=== PATIENT | female | born 2000 | race Caucasian/White ===

== ENCOUNTER → 2019-02-10 | Outpatient (CLI) | payer OTHER ==
--- NOTE | 2019-02-10 16:34 | US ---
EXAMINATION TYPE: Ultrasound OB <= 14 week fetus DATE OF EXAM: 02/10/2019 3:16 PM COMPARISON: NONE CLINICAL HISTORY: 18 year-old female Z36 CONFIRM DATES. EXAM PERFORMED: Transabdominal (TA) FINDINGS: EXAM MEASUREMENTS: GESTATIONAL AGE / DATING Physician Established: Not yet established Dates by LMP: (9 weeks/5 days) EDC: 09/10/19 Dates by First Scan: No previous this is first scan Dates by Current Scan for: (9 weeks/6 days) EDC: 09/09/19 MATERNAL ANATOMY Uterus: 14.4 x 4.2 x 7.7cm Right Ovary: 3.6 x 1.9 x 1.8cm Left Ovary: 2.6 x 2.0 x 1.6cm Post CDS / Adnexa: wnl Presence of free fluid: no Presence of corpus luteal cyst: yes, right ovary = 2.0 x 1.7 x 2.0cm GESTATION / SURVEY CRL: 3.0cm (9 weeks/6 days) Yolk Sac (normal less than 6mm): 0.5cm Heart Rate: 170 bpm Rhythm: Normal IUP: Viable IUP Date of LMP: 12/04/18 Beta HcG (if available): Not available at this time Equipment Service Associate notes: Single viable IUP 9wks/6days with RAQUEL of 09/09/19. Probable corpus luteum right ov isabel IMPRESSION: 1. Single live intrauterine with estimated gestational age of 9 weeks 5 days by LMP. Curren t ultrasound biometry is concordant (9 weeks 6 days). 2. Complete survey recommended at 18-20 weeks.
== END | disposition home or self-care (01) ==
LOC: RADUSWWP 14:49
PROVIDERS: ATTEND Obstetrics & Gynecology
DX: Z36.89 Encounter for other specified antenatal screening (principal); Z3A.09 9 weeks gestation of pregnancy
CPT/HCPCS: 76801

== ENCOUNTER → 2019-02-17 | Outpatient (CLI) | payer OTHER ==
[2019-02-17 15:04] LABS: HGB 12.2 gm/dL (11.4-16.0); MCHC 32.9 g/dL (31.0-37.0); MCV 88.2 fL (80.0-100.0); Mean Platelet Volume 6.4; Platelet Count 351 k/uL (150-450); RDW 13.6 % (11.5-15.5)
[2019-02-17 19:38] LABS: African American GFR (CKD) 152.1 (60.0-200.0)
[2019-02-17 20:46] LABS: HIV 1 AB Non-Reactive (Non-Reactive); HIV AB P24 Non-Reactive (Non-Reactive); HIV P24 AG Non-Reactive (Non-Reactive)
[2019-02-18 05:38] LABS: Toxoplasma Antibody (IgG) <3.0 IU/mL (<7.2); Toxoplasma Antibody (IgM) <3.0 AU/mL (<8.0)
== END | disposition home or self-care (01) ==
LOC: LABWHC1 13:41
PROVIDERS: ATTEND Obstetrics & Gynecology
DX: R53.83 Other fatigue (principal); Z3A.00 Weeks of gestation of pregnancy not specified
CPT/HCPCS: 36415; 82565; 82947; 85027; 86762; 86777; 86778; 86780; 86850; 86900; 86901; 87340; 87390

== ENCOUNTER 2019-03-29 14:09 | Emergency (ER) | payer OTHER ==
[2019-03-29 14:34] VITALS: BP 146/75; PULSE 70; RESP 16; TEMP 98.3
[2019-03-29] MEDS ORDERED: SODIUM CHLORIDE 0.9% 1,000 ML IV STA ×2 (14:58)
[2019-03-29 16:01] LABS: Basophils % (A) 0 %; Eosinophils # (A) 0.1 k/uL (0-0.7); Eosinophils % (A) 1 %; HCT 36.2 % (34.0-46.0); HGB 12.1 gm/dL (11.4-16.0); Lymphocytes # (A) 2.3 k/uL (1.0-4.8); Lymphocytes % (A) 20 %; MCH 29.5 pg (25.0-35.0); MCHC 33.3 g/dL (31.0-37.0); MCV 88.5 fL (80.0-100.0); Mean Platelet Volume 6.6; Monocytes # (A) 0.4 k/uL (0-1.0); Monocytes % (A) 4 %; Neutrophils # (A) 8.6 k/uL (1.3-7.7); Neutrophils % (A) 74 %; Platelet Count 368 k/uL (150-450); RBC 4.09 m/uL (3.80-5.40); RDW 14.7 % (11.5-15.5); WBC 11.5 k/uL (4.0-11.0)
[2019-03-29 16:08] LABS: Amorphous Sediment,Urine Rare /hpf; Appearance,Urine Cloudy (Clear); Bacteria,Urine Rare /hpf; Bilirubin,Urine Negative (Negative); Blood,Urine Negative (Negative); Color,Urine Yellow; Glucose,Urine (UA) Negative (Negative); Hyaline Casts,Urine 7 /lpf (0-2); Ketones,Urine 1+ (Negative); Leukocyte Esterase,Urine Negative (Negative); Mucus,Urine Few /hpf; Nitrite,Urine Negative (Negative); Protein,Urine Trace (Negative); Specific Gravity,Urine 1.022 (1.001-1.035); Squamous Epithelial Cell,Urine 39 /hpf (0-4); Urobilinogen,Urine <2.0 mg/dL (<2.0); WBC,Urine 3 /hpf (0-5)
[2019-03-29 16:10] LABS: ALT 24 U/L (9-52); AST 20 U/L (14-36); African American GFR (CKD) >90 (>60 ml/min/1.73 sqM); Albumin 3.9 g/dL (3.5-5.0); Alkaline Phosphatase 58 U/L (38-126); Amylase 63 U/L (30-110); Anion Gap 10 mmol/L; Blood Urea Nitrogen 7 mg/dL (7-17); Calcium 8.8 mg/dL (8.4-10.2); Carbon Dioxide 22 mmol/L (22-30); Chloride 105 mmol/L (98-107); Glucose 72 mg/dL (74-99); Sodium 137 mmol/L (137-145); Total Bilirubin 0.2 mg/dL (0.2-1.3); Total Protein 6.8 g/dL (6.3-8.2)
--- NOTE | 2019-03-29 16:31 | ED ---
Abdominal Pain HPI - General Chief Complaint: Abdominal Pain Stated Complaint: abdominal pain/16 wks preg Time Seen by Provider: 03/29/19 14:35 Source: patient, RN notes reviewed, old records reviewed Mode of arrival: ambulatory Limitations: no limitations - History of Present Illness Initial Comments: Patient is a 18-year-old female presents today with right lower quadrant pain intermittently today. She is currently 16 weeks . She has had u ltrasounds confirm intrauterine . Her INSTRUMENT REPAIR TECHNICIAN is Dr. Andrew. Patient states that she's had no vaginal bleeding or discharge. She denies any changes in urination. Patient reports that she had sharp pain that doubled her over at that time. Denies any fevers. She states that she's had no diarrhea or changes in stools. - Related Data Previous Rx's Medication Instructions Recorded Cephalexin [Keflex] 500 mg PO Q6HR 3 Days #12 cap 03/29/19 Metoclopramide [Reglan] 10 mg PO ACHS #15 tab 03/29/19 Allergies Allergy/AdvReac Type Severity Reaction Status Date / Time No Known Allergies Allergy Verified 03/29/19 14:34 Review of Systems ROS Statement: Those systems with pertinent positive or pertinent negative responses have been documented in the HPI. ROS Other: All systems not noted in ROS Statement are negative. Past Medical History Past Medical History: No Reported History History of Any Multi-Drug Resistant Organisms: None Reported Additional Past Surgical History / Comment(s): EYE SURGERY Past Psychological History: No Psychological Hx Reported Smoking Status: Current every day smoker Past Alcohol Use History: None Reported Past Drug Use History: None Reported General Exam - General Exam Comments Initial Comments: Well-appearing 18-year-old female. Alert and oriented 3. Smiling and joking with her boyfriend and room. General: Well appearing, well nourished, in no distress. Oriented x 3, normal mood and affect . Ambulating without difficulty. Skin: Good turgor, no rash, unusual bruising or prominent lesions Hair: Normal texture and distribution. HEENT: Head: Normocephalic, atraumatic, no visible or palpable masses, depressions, or scaring. Eyes: Visual acuity intact, conjunctiva clear, sclera non-icteric, EOM intact, PERRL. Ears: EACs clear, TMs translucent & cone of light visualized. hearing intact. Nose: No external lesions, mucosa non-inflamed, septum and turbinates normal Mouth: Mucous membranes moist, no mucosal lesions. Teeth/Gums: No obvious caries or periodontal disease. No gingival inflammation or significant resorption. Pharynx: Mucosa non-inflamed, no tonsillar hypertrophy or exudate Neck: Supple, without lesions, bruits, or adenopathy, thyroid non-enlarged and non-tender Heart: No cardiomegaly or thrills; regular rate and rhythm, no murmur or gallop Lungs: Clear to auscultation and percussion Abdomen: Bowel sounds normal, no tenderness, organomegaly, masses, or hernia Back: Spine normal without deformity or tenderness, no CVA tenderness Extremities: No amputations or deformities, cyanosis, edema or varicosities, peripheral pulses intact Musculoskeletal: Normal gait and station. No misalignment, asymmetry, crepitation, defects, tenderness, masses, effusions, decreased range of motion, instability, atrophy or abnormal strength or tone in the head, neck, spine, ribs, pelvis or extremities. Neurologic: CN 2-12 normal. Sensation to pain, touch, and proprioception normal. DTRs normal in upper and lower extremities. No pathologic reflexes. Psychiatric: Oriented X3, intact recent and remote memory, judgment and insight, normal mood and affect. Limitations: no limitations Course Vital Signs 03/29/19 03/29/19 14:32 17:27 Temperature 98.3 F 98.3 F Pulse Rate 70 70 Respiratory 16 16 Rate Blood Pressure 146/75 146/75 O2 Sat by Pulse 100 100 Oximetry Medical Decision Making - Medical Decision Making 18-year-old female presented today for evaluation of her lower quadrant abdominal pain. Aside Patient has no significant tenderness on exam Patient did have an episode of vomiting. She had heart tones were auscultated. heart tones are 138- 150 bpm. patient's blood work was reviewed and unremarkable. I did discuss that Patient should follow-up with her INSTRUMENT REPAIR TECHNICIAN. Pain could be related to previous stretching. She has no other signs of tenderness or guarding on exam or fever. Discussed the signs were to occur she should return for reevaluation. All questions were answered return parameters were discussed. - Lab Data Result diagrams: 03/29/19 15:48 03/29/19 15:48 Lab Results 03/29/19 03/29/19 03/29/19 Range/Units 15:48 15:48 15:48 WBC 11.5 H (4.0-11.0) k/uL RBC 4.09 (3.80-5.40) m/uL Hgb 12.1 (11.4-16.0) gm/dL Hct 36.2 (34.0-46.0) % MCV 88.5 (80.0-100.0) fL MCH 29.5 (25.0-35.0) pg MCHC 33.3 (31.0-37.0) g/dL RDW 14.7 (11.5-15.5) % Plt Count 368 (150-450) k/uL Neutrophils % 74 % Lymphocytes % 20 % Monocytes % 4 % Eosinophils % 1 % Basophils % 0 % Neutrophils # 8.6 H (1.3-7.7) k/uL Lymphocytes # 2.3 (1.0-4.8) k/uL Monocytes # 0.4 (0-1.0) k/uL Eosinophils # 0.1 (0-0.7) k/uL Basophils # 0.0 (0-0.2) k/uL Sodium 137 (137-145) mmol/L Potassium 4.0 (3.5-5.1) mmol/L Chloride 105 (98-107) mmol/L Carbon Dioxide 22 (22-30) mmol/L Anion Gap 10 mmol/L BUN 7 (7-17) mg/dL Creatinine 0.54 (0.52-1.04) mg/dL Est GFR (CKD-EPI)AfAm >90 (>60 ml/min/1.73 sqM) Est GFR (CKD-EPI)NonAf >90 (>60 ml/min/1.73 sqM) Glucose 72 L (74-99) mg/dL Calcium 8.8 (8.4-10.2) mg/dL Total Bilirubin 0.2 (0.2-1.3) mg/dL AST 20 (14-36) U/L ALT 24 (9-52) U/L Alkaline Phosphatase 58 (38-126) U/L Total Protein 6.8 (6.3-8.2) g/dL Albumin 3.9 (3.5-5.0) g/dL Amylase 63 (30-110) U/L Lipase 57 (23-300) U/L Urine Color Yellow Urine Appearance Cloudy H (Clear) Urine pH 6.0 (5.0-8.0) Ur Specific [place] 1.022 (1.001-1.035) Urine Protein Trace H (Negative) Urine Glucose (UA) Negative (Negative) Urine Ketones 1+ H (Negative) Urine Blood Negative (Negative) Urine Nitrite Negative (Negative) Urine Bilirubin Negative (Negative) Urine Urobilinogen <2.0 (<2.0) mg/dL Ur Leukocyte Esterase Negative (Negative) Urine WBC 3 (0-5) /hpf Ur Squamous Epith Cells 39 H (0-4) /hpf Amorphous Sediment Rare H (None) /hpf Urine Bacteria Rare H (None) /hpf Hyaline Casts 7 H (0-2) /lpf Urine Mucus Few H (None) /hpf - Radiology Data Radiology results: report reviewed Disposition Clinical Impression: Bacteriuria during Disposition: HOME SELF-CARE Condition: Good Instructions (If sedation given, give patient instructions): Abdominal Pain in (ED) Additional Instructions: Patient advised to follow-up with primary care physician and INSTRUMENT REPAIR TECHNICIAN. Take antibiotics and nausea medicine as prescribed. Prescriptions: Cephalexin [Keflex] 500 mg PO Q6HR 3 Days #12 cap Metoclopramide [Reglan] 10 mg PO ACHS #15 tab Is patient prescribed a controlled substance at d/c from ED?: No Referrals: None,Stated [Primary Care Provider] - 1-2 days Time of Disposition: 17:02
== END 2019-03-29 17:26 | disposition home or self-care (01) ==
LOC: EC 14:09
DX: O23.91 Unspecified genitourinary tract infection in pregnancy, first trimester (principal); O99.331 Smoking (tobacco) complicating pregnancy, first trimester; F17.200 Nicotine dependence, unspecified, uncomplicated; Z3A.16 16 weeks gestation of pregnancy
CPT/HCPCS: 36415; 80053; 81001; 82150; 83690; 85025; 87086; 99284

== ENCOUNTER 2019-09-08 08:45 | Inpatient (IN) | payer OTHER ==
[2019-09-08] MEDS ORDERED: TERBUTALINE 1 MG/ML VIAL SQ PRN (09:21)
[2019-09-08] MEDS ORDERED: CARBOPROST TROMETHAMINE 250 MCG/ML 1 ML AMP IM PRN (09:21)
[2019-09-08] MEDS ORDERED: LIDOCAINE 0.5% (PF) 5 MG/ML (50 ML SDV) SQ PRN (09:21)
[2019-09-08] MEDS ORDERED: OXYTOCIN 10 UNIT/ML 1 ML VIAL IM PRN (09:21)
[2019-09-08] MEDS ORDERED: METHYLERGONOVINE 0.2 MG/ML 1 ML AMP IM PRN (09:21)
[2019-09-08] MEDS ORDERED: OXYTOCIN 30 UNITS/500 ML NS 30 UNIT in SALINE 1 500ML.BAG IV SCH (09:30)
[2019-09-08] MEDS: LACTATED RINGERS 1,000 ML IV SCH ×3 (09:50→18:17)
[2019-09-08 10:11] LABS: Basophils # (A) 0.1 k/uL (0-0.2); Basophils % (A) 1 %; Eosinophils # (A) 0.2 k/uL (0-0.7); Eosinophils % (A) 1 %; HCT 38.2 % (34.0-46.0); HGB 12.4 gm/dL (11.4-16.0); Lymphocytes # (A) 1.7 k/uL (1.0-4.8); Lymphocytes % (A) 15 %; MCH 29.5 pg (25.0-35.0); MCHC 32.3 g/dL (31.0-37.0); MCV 91.4 fL (80.0-100.0); Mean Platelet Volume 7.2; Monocytes # (A) 0.4 k/uL (0-1.0); Monocytes % (A) 4 %; Neutrophils # (A) 8.8 k/uL (1.3-7.7); Neutrophils % (A) 78 %; Platelet Count 277 k/uL (150-450); RBC 4.19 m/uL (3.80-5.40); RDW 12.7 % (11.5-15.5); WBC 11.3 k/uL (3.8-10.6)
--- NOTE | 2019-09-08 10:12 | P.HPOB ---
History of Present Illness H&P Date: 09/08/19 Chief Complaint: Leaking of fluid. This patient is a pleasant 19-year-old 1 para 0 female estimated date of confinement 09/10/2019 estimated gestational age 39-5/7 weeks who presents to labor and delivery complaining of gush of fluid at about 7:00 this morning. Patient's amnio sure is positive and she has gross rupture membranes. care has been uncomplicated. Review of Systems Genitourinary: Reports Menstruation: Reports amenorrhea Past Medical History Past Medical History: No Reported History History of Any Multi-Drug Resistant Organisms: None Reported Additional Past Surgical History / Comment(s): EYE SURGERY Past Anesthesia/Blood Transfusion Reactions: No Reported Reaction Past Psychological History: No Psychological Hx Reported Smoking Status: Current some day smoker Past Alcohol Use History: None Reported Past Drug Use History: None Reported Medications and Allergies Home Medications Medication Instructions Recorded Confirmed Type Pnv No.95/Ferrous Fum/Folic AC 1 tab PO DAILY 09/08/19 09/08/19 History [ Multivitamin Tablet] Allergies Allergy/AdvReac Type Severity Reaction Status Date / Time No Known Allergies Allergy Verified 09/08/19 09:12 Exam Vital Signs Temp Pulse Resp BP 09/08/19 09:14 98.4 F 94 18 140/67 Intake and Output 09/07/19 09/08/19 09/08/19 22:59 06:59 14:59 Other: Weight 110.677 kg - OBG Physical Exam Abdomen: bowel sounds normal, no diffuse tenderness, no bruit present, no guarding noted, no hepatomegaly, no splenomegaly, no mass Vulva: both: normal Vagina: normal moisture, no discharge Cervix: no lesion (Cervix is 2 cm 80% effaced -2 station with gross rupture membranes.), no discharge Uterus: enlarged (Fundal height 39 cm) Results blood work shows she is A-, rubella immune, RPR nonreactive, hepatitis B negative, HIV is negative, Glucola was normal, group B strep was negative, ultrasounds have shown normal growth and anatomy. Patient received RhoGAM on June 11. Assessment and Plan Assessment: This is a pleasant 19-year-old 1 para 0 female 39-5/7 weeks' gestation with spontaneous rupture membranes this morning. Patient's having very irregular sporadic contractions and therefore plan is to proceed with Pitocin augmentation/induction. heart tones are category 1. Anticipate vaginal delivery. Dr. Felix will be managing this patient throughout the day and delivery since I am post call. (1) 39 weeks gestation of Current Visit: Yes Status: Acute Code(s): Z3A.39 - 39 WEEKS GESTATION OF SNOMED Code(s): 33473318 (2) Spontaneous rupture of amniotic membranes Current Visit: Yes Status: Acute Code(s): LBT7870 - SNOMED Code(s): 605969979 (3) Rh negative status during Current Visit: Yes Status: Acute Code(s): O26.899 - OTH RELATED CONDITIONS, UNSPECIFIED TRIMESTER; Z67.91 - UNSPECIFIED BLOOD TYPE, RH NEGATIVE SNOMED Code(s): 453083083
--- NOTE | 2019-09-08 10:16 | P.MSEPDOC ---
Presenting Problems - Arrival Data Date of Arrival on Unit: 09/08/19 Time of Arrival on Unit: 08:45 Mode of Transport: Ambulatory - Complaint OB-Reason for Admission/Chief Complaint: Rule Out SROM Comment: Pt presents to triage for gush of fluid at 0730 this am, Medical History - Information : 1 Para: 0 Term: 0 : 0 Abortions: Spontaneous or Elective: 0 Number of Living Children: 0 - Gestational Age Gestational Age by RAQUEL (wks/days): 39 Weeks and 5 Days - History Complications: Smoker Review of Systems - Review of Systems Constitutional: No problems Breast: No problems ENT: No problems Cardiovascular: No problems Respiratory: No problems Gastrointestinal: No problems Genitourinary: No problems Musculoskeletal: No problems Neurological: No problems Skin: No problems Vital Signs - Temperature Temperature: 98.4 F Temperature Source: Temporal Artery Scan - Pulse Right Brachial Pulse Rate: 94 Pulse Assessment Method: Automatic Cuff - Respirations Respiratory Rate: 18 Oxygen Delivery Method: Room Air O2 Sat by Pulse Oximetry: 97 - Blood Pressure Right Arm Blood Pressure: 140/67 Blood Pressure Mean: 91 Blood Pressure Source: Automatic Cuff Medical Screen Scoring (Pre) - Cervical Exam Dilation: 1-3 cm = 1 Effacement: More than 50% = 2 Membranes: Ruptured = 3 - Uterine Contractions Frequency: > 5 minutes apart = 1 Duration: N/A Intensity: N/A - Maternal Vital Signs Maternal Blood Pressure: Systolic >139 = 2 Signs of Preeclampsia: N/A Maternal Respirations: N/A - Maternal Trauma Maternal Trauma: N/A - Assessment - Baby A Baseline FHR: 140 Heart Rate - NICHD Category: Category I (Normal) = 0 NST: Reactive Position: N/A Station: N/A - Total Score - Baby A Total Score - Baby A: 9 - Total Score - Baby B Total Score - Baby B: 9 - Total Score - Baby C Total Score - Baby C: 9 - Level of Risk - Baby A Level of Risk - Baby A: Medium (6-9) - Level of Risk - Baby B Level of Risk - Baby B: Medium (6-9) - Level of Risk - Baby C Level of Risk - Baby C: Medium (6-9) Physician Notification (Pre) - Physician Notified Physician Notified Date: 09/08/19 Physician Notified Time: 09:20 New Order Received: Yes - Notification Comment Comment: admited for SROM Disposition - Disposition OB Disposition: Admit, LDRP Suite I agree with the RN Medical Screening Exam: Yes Risk & Benefit of care provided described in d/c instruction: Yes Diagnosis: ENCOUNTER FOR FULL-TERM UNCOMPLICATED DELIVERY
[2019-09-08] MEDS ORDERED: BUTORPHANOL 1 MG/ML 1 ML VIAL IV PRN (13:17)
[2019-09-08] MEDS ORDERED: SODIUM CHLORIDE 0.9% 100 ML BAG ONE (15:45)
[2019-09-08] MEDS ORDERED: fentaNYL (PF) 50 MCG/ML 5 ML AMP ONE (15:45)
[2019-09-08] MEDS ORDERED: ROPIVACAINE 5MG/ML 20ML VIAL ONE (15:45)
[2019-09-08] MEDS ORDERED: ROPIVACAINE 100 MG, fentaNYL (PF) 200 MCG in SODIUM CHLORIDE 0.9% 76 ML EPIDURAL ONE (16:29)
--- NOTE | 2019-09-08 19:15 | P.PROBDLV ---
Vaginal Delivery Note - . Vaginal Delivery Note: The patient progressed to complete dilation after oxytocin augmentation of labor. She did receive epidural anesthesia. Once reaching complete dilation, she began pushing. Infant's head came to a crown. With one further push, the infant's head delivered across the perineum followed by the anterior shoulder. Nose and mouth were bulb suctioned. With one further push, the remainder the infant easily delivered and was placed on mother's abdomen. Cord was clamped a nd cut and infant was taken to warmer for evaluation. A viable female infant was noted with scores of 8 at 1 minute and 9 at 5 minutes and weight of 8 lbs. 9 oz. Placenta delivered shortly thereafter, intact, with a three-vessel cord. Uterus contracted fairly well after oxytocin was given and uterine massage was carried out. Her bladder was drained and this did help with the uterus fide. I also did place a gloved hand within the uterus and removed blood clots. No further placental tissue was noted. Inspection of the perineum revealed a first degree perineal laceration more to the left side of the vagina. This area was anesthetized with 1% lidocaine and then sutured with 3-0 Vicryl suture in a running locked fashion. Estimated blood loss is approximately 300 mL's. Both mother and infant are in stable condition. She also did have a small right periurethral abrasion that was noted to be hemostatic.
[2019-09-08] MEDS ORDERED: SIMETHICONE 80 MG CHEWABLE PO PRN (19:21)
[2019-09-08] MEDS ORDERED: LANOLIN CREAM 5 GM TUBE TOPICAL PRN (19:21)
[2019-09-08] MEDS ORDERED: diphenhydrAMINE 50 MG/ML 1 ML VIAL IVP PRN (19:21)
[2019-09-08] MEDS ORDERED: OXYTOCIN 20 UNITS/1000 ML NS 1,000 ML IV SCH (19:21)
[2019-09-08] MEDS ORDERED: Rhogam IMMUNE GLOBULIN 1,500 UNIT/1 ML IM ONE (19:21)
[2019-09-08] MEDS ORDERED: HYDROCORTISONE 2.5% RECTAL CREAM 30 GM TUBE RECTAL PRN (19:21)
[2019-09-08] MEDS ORDERED: ZOLPIDEM 5 MG TAB PO PRN (19:21)
[2019-09-08] MEDS ORDERED: ACETAMINOPHEN TAB 325 MG TAB PO PRN (19:21)
[2019-09-08] MEDS ORDERED: BENZOCAINE/MENTHOL SPRAY 1 GM/SPRAY AEROSOL TOPICAL PRN (19:21)
[2019-09-08] MEDS ORDERED: WITCH HAZEL 1 EACH MED..PAD TOPICAL PRN (19:21)
[2019-09-08] MEDS ORDERED: diphenhydrAMINE 25 MG CAP PO PRN (19:21)
[2019-09-08] MEDS ORDERED: BISACODYL 10 MG SUPP RECTAL PRN (19:21)
[2019-09-08] MEDS: IBUPROFEN 600 MG TAB PO PRN (21:19)
[2019-09-09] MEDS: SENNOSIDES-DOCUSATE SODIUM 1 EACH TAB PO SCH ×2 (01:23→08:06)
[2019-09-09 06:38] LABS: Basophils % (A) 0 %; Eosinophils # (A) 0.1 k/uL (0-0.7); Eosinophils % (A) 1 %; HCT 29.2 % (34.0-46.0); Lymphocytes # (A) 1.7 k/uL (1.0-4.8); Lymphocytes % (A) 13 %; MCHC 32.9 g/dL (31.0-37.0); MCV 91.2 fL (80.0-100.0); Mean Platelet Volume 7.4; Monocytes # (A) 0.7 k/uL (0-1.0); Monocytes % (A) 5 %; Neutrophils # (A) 10.6 k/uL (1.3-7.7); Neutrophils % (A) 79 %; Platelet Count 245 k/uL (150-450); WBC 13.4 k/uL (3.8-10.6)
--- NOTE | 2019-09-09 06:39 | P.PNOBGVD ---
Subjective - Subjective Patient reports: Reports appetite normal, Reports voiding normally, Reports pain well controlled, Reports ambulating normally : doing well Objective - Latest Vital Signs Latest vital signs: Vital Signs Temp Pulse Resp BP Pulse Ox 09/09/19 04:00 98.3 F 103 H 16 119/75 09/09/19 00:00 98.6 F 96 16 137/67 09/08/19 21:10 98.5 F 115 H 16 142/98 09/08/19 20:40 98.5 F 96 16 140/79 09/08/19 20:10 98.2 F 105 H 16 142/77 09/08/19 19:55 98.1 F 104 H 16 133/73 09/08/19 19:40 98.5 F 110 H 16 122/74 09/08/19 19:25 98.4 F 95 16 141/65 09/08/19 10:16 98.4 F 94 18 140/67 97 09/08/19 10:09 98.4 F 94 18 140/67 97 09/08/19 09:14 98.4 F 94 18 140/67 Intake and Output 09/08/19 09/08/19 09/09/19 14:59 22:59 06:59 Intake Total 300 Balance 300 Intake: Oral 300 Other: # Voids 1 1 Weight 110.677 kg - Exam Lungs: bilateral: normal Chest: Normal S1, Normal S2 Extremities: Present: normal Abdomen: Present: normal appearance, soft Uterus: Present: normal, firm - Labs Labs: Abnormal Lab Results - Last 24 Hours (Table) 09/08/19 Range/Units 09:45 WBC 11.3 H (3.8-10.6) k/uL Neutrophils # 8.8 H (1.3-7.7) k/uL Assessment and Plan Assessment: day #1. Patient is resting without complaints and wishes to go home. Vital signs are stable she is afebrile. Uterus is firm nontender she's having normal lochia. My impression this is a normal course. Plan is to continue routine care discharge home later today. (1) 39 weeks gestation of Current Visit: Yes Status: Acute Code(s): Z3A.39 - 39 WEEKS GESTATION OF SNOMED Code(s): 43941927 (2) Spontaneous rupture of amniotic membranes Current Visit: Yes Status: Acute Code(s): [id number] - SNOMED Code(s): 821599130 (3) Rh negative status during Current Visit: Yes Status: Acute Code(s): O26.899 - OTH RELATED CONDITIONS, UNSPECIFIED TRIMESTER; Z67.91 - UNSPECIFIED BLOOD TYPE, RH NEGATIVE SNOMED Code(s): 299704622
--- NOTE | 2019-09-09 06:40 | P.DS ---
Providers Date of admission: 09/08/19 09:19 Expected date of discharge: 09/09/19 Attending physician: Leonardo Andrew Primary care physician: Stated None - Discharge Diagnosis(es) (1) 39 weeks gestation of Current Visit: Yes Status: Acute (2) Spontaneous rupture of amniotic membranes Current Visit: Yes Status: Acute (3) Rh negative status during Current Visit: Yes Status: Acute Hospital Course: Please see dictated H&P for intimate details of this patient's admission. Brief summary this pleasant 19-year-old 1 para 0 female 39-5/7 weeks admitted to labor and delivery with spontaneous rupture membranes. Patient had induction/augmentation of labor goes on have a vaginal delivery viable female . Please see dictated delivery note. day #1 patient without complaints she wishes to go home. Patient's felt be stable for discharge home follow up with me in 6 weeks. Procedures: Normal vaginal delivery Patient Condition at Discharge: Good Plan - Discharge Summary New Discharge Prescriptions: New Ibuprofen [Motrin] 600 mg PO Q6HR PRN #40 tab PRN Reason: Mild Pain Or Fever >= 100.5 No Action Pnv No.95/Ferrous Fum/Folic AC [ Multivitamin Tablet] 1 tab PO DAILY Discharge Medication List Pnv No.95/Ferrous Fum/Folic AC [ Multivitamin Tablet] 1 tab PO DAILY 09/08/19 [History] Ibuprofen [Motrin] 600 mg PO Q6HR PRN #40 tab 09/09/19 [Rx] Follow up Appointment(s)/Referral(s): Leonardo Andrew MD [STAFF PHYSICIAN] - 6 Weeks Patient Instructions/Handouts: Vaginal Delivery (DC) Activity/Diet/Wound Care/Special Instructions: No intercourse or anything per vagina for 6 weeks. Please call if any fever, chills, excessive vaginal bleeding, and/or abdominal pain. Discharge Disposition: HOME SELF-CARE
[2019-09-09 07:00] LABS: HGB 9.6 gm/dL (11.4-16.0)
[2019-09-09] MEDS: IBUPROFEN 600 MG TAB PO PRN ×2 (08:06→16:37)
[2019-09-09 16:27] VITALS: BP 135/72; PULSE 89; RESP 18; TEMP 98.8
== END 2019-09-09 19:00 | disposition home or self-care (01) | DRG 807 ==
LOC: FBPOP 08:45 → 4FBP 09:19
PROVIDERS: ADMIT Obstetrics & Gynecology; ATTEND Obstetrics & Gynecology
PROC: 00HU33Z Insertion of Infusion Device into Spinal Canal, Percutaneous Approach (ICD-10-PCS; principal; 2019-09-08)
PROC: 0HQ9XZZ Repair Perineum Skin, External Approach (ICD-10-PCS; principal; 2019-09-08)
PROC: 10E0XZZ Delivery of Products of Conception, External Approach (ICD-10-PCS; principal; 2019-09-08)
PROC: 3E0R3NZ Introduction of Analgesics, Hypnotics, Sedatives into Spinal Canal, Percutaneous Approach (ICD-10-PCS; principal; 2019-09-08)
DX: O70.0 First degree perineal laceration during delivery (principal); Z37.0 Single live birth; F17.200 Nicotine dependence, unspecified, uncomplicated; Z3A.39 39 weeks gestation of pregnancy; O99.334 Smoking (tobacco) complicating childbirth; O26.893 Other specified pregnancy related conditions, third trimester; Z67.91 Unspecified blood type, Rh negative
CPT/HCPCS: 59025; 84112; 85025; 85461; 86850; 86900; 86901; 99213

== ENCOUNTER → 2023-10-26 | Outpatient (CLI) | payer OTHER ==
--- NOTE | 2023-10-26 17:45 | US ---
EXAMINATION TYPE: US OB >= 14 wk fetus DATE OF EXAM: 10/26/2023 COMPARISON: None CLINICAL INDICATION: Female, 23 years old with history of O36.63XO MATERNAL CARE FOR EXCESS RAFAEL WTH, TH; TECHNIQUE: Transabdominal (TA) GESTATIONAL AGE / DATING Physician Established: (38 weeks/0 days) EDC: 11/09/2023 Dates by LMP: LMP unknown Dates by First Scan: No scan here Dates by Current Scan: (39 weeks/6 days) EDC: 10/27/2023 SURVEY IUP: Single PLACENTA: Fundal PREVIA: No Previa KARLA: 12.9 cm Normal CERVICAL LENGTH (transabdominal: norm > 3.0cm): 4.1 cm BIOMETRY PRESENTATION: Vertex BPD: 9.5 cm 38 weeks / 6 days HC: 33.5 cm 38 weeks / 3 days AC: 37.2 cm 41 weeks / 1 days FL: 8.0 cm 41 weeks / 0 days ESTIMATED WEIGHT IN GRAMS: 4075 grams ESTIMATED WEIGHT IN LBS/OZ: 9 lbs. 0 oz. WEIGHT PERCENTAGE BASED ON ESTABLISHED DATES: 98% HC/AC: 0.90 Abnormal FL/AC: 22% Normal HEART RATE: 140 bpm RHYTHM: Normal IMPRESSION: Single live intrauterine gestation ultrasound age 39 weeks 6 days. Additional information as describe d above.
== END | disposition home or self-care (01) ==
LOC: RADUSWWP 15:50
PROVIDERS: ATTEND Obstetrics & Gynecology
DX: O36.63X0 Maternal care for excessive fetal growth, third trimester, not applicable or unspecified (principal); Z3A.39 39 weeks gestation of pregnancy
CPT/HCPCS: 76805

== ENCOUNTER 2023-11-02 06:00 | Inpatient (IN) | payer OTHER ==
--- NOTE | 2023-11-01 06:24 | P.HPOB ---
History of Present Illness H&P Date: 11/01/23 Chief Complaint: Requested induction of labor This patient is a pleasant 23-year-old 2 para 1 female estimated date of confinement 11/08/2023 estimated gestational age 39 and one sevenths weeks who presents to labor and delivery for requested induction of labor. Patient's care has been complicated by large for gestational age. Patient had an ultrasound performed at 35 weeks that showed estimated weight greater than the 90th percentile at 7 lbs. 1 oz. I repeated her ultrasound at 38 weeks and estimated weight was 4075 g or 9 pounds. Patient has had a previous vaginal delivery 8 lbs. 9 oz. that was uncomplicated. I did discuss the rela tive inaccuracy of the ultrasound and patient was offered a section for delivery however wishes to proceed with induction at this time. is otherwise been uncomplicated. Review of Systems Genitourinary: Reports Menstruation: Reports amenorrhea Past Medical History Past Medical History: No Reported History History of Any Multi-Drug Resistant Organisms: None Reported Additional Past Surgical History / Comment(s): EYE SURGERY Past Anesthesia/Blood Transfusion Reactions: No Reported Reaction Past Psychological History: No Psychological Hx Reported Smoking Status: Former smoker Past Alcohol Use History: None Reported Past Drug Use History: None Reported - Past Family History Father Family Medical History: No Reported History Medications and Allergies Home Medications Medication Instructions Recorded Confirmed Type Pnv No.95/Ferrous Fum/Folic AC 1 tab PO DAILY 09/08/19 09/08/19 History [ Multivitamin Tablet] Allergies Allergy/AdvReac Type Severity Reaction Status Date / Time No Known Allergies Allergy Verified 09/08/19 09:12 Exam - OBG Physical Exam Abdomen: bowel sounds normal, no diffuse tenderness, no bruit present, no guarding noted, no hepatomegaly, no splenomegaly, no mass Vulva: both: normal Vagina: normal moisture, no discharge Cervix: no lesion (Cervix in the office is 3 cm dilated), no discharge Uterus: enlarged (Fundal height 40 cm) Results blood work shows she is A negative, rubella immune, RPR is nonreactive, hepatitis B and C are negative, Glucola was 111, ultrasounds as above, RhoGAM was given on August 15, group B strep was positive. Assessment and Plan Assessment: This is a pleasant 23-year-old 2 para 1 female 39 and one sevenths weeks gestation admitted to labor and delivery for requested induction of labor. Patient has a known large for gestational age infant and I did discussed options for delivery including all right section. Patient understands there is not only variability but inaccuracy to the ultrasound at term in regards to estimated weight. Patient's had a previous uncomplicated delivery of an 8 lbs. 9 oz. baby. Patient is requesting induction of labor and I feel this is appropriate. Patient also has a positive group B strep. Plan is antibiotic prophylaxis and Pitocin induction per protocol. (1) Elective induction of labor planned Status: Acute Code(s): KLE0403 - SNOMED Code(s): 066775805 (2) Group B streptococcal carriage complicating Status: Acute Code(s): O99.820 - STREPTOCOCCUS B CARRIER STATE COMPLICATING SNOMED Code(s): 264024693479293 (3) 39 weeks gestation of Status: Acute Code(s): Z3A.39 - 39 WEEKS GESTATION OF SNOMED Code(s): 79332168 (4) Rh negative status during Status: Acute Code(s): O26.899 - OTH RELATED CONDITIONS, UNSPECIFIED TRIMESTER; Z67.91 - UNSPECIFIED BLOOD TYPE, RH NEGATIVE SNOMED Code(s): 666350367
[2023-11-02] MEDS ORDERED: CARBOPROST TROMETHAMINE 250 MCG/ML 1 ML AMP IM PRN (06:13)
[2023-11-02] MEDS ORDERED: LIDOCAINE 0.5% (PF) 5 MG/ML (50 ML SDV) SQ PRN (06:13)
[2023-11-02] MEDS ORDERED: OXYTOCIN 10 UNIT/ML 1 ML VIAL IM PRN (06:13)
[2023-11-02] MEDS ORDERED: miSOPROStoL 200 MCG TAB PO PRN (06:13)
[2023-11-02] MEDS ORDERED: METHYLERGONOVINE 0.2 MG/ML 1 ML AMP IM PRN (06:13)
[2023-11-02] MEDS ORDERED: TERBUTALINE 1 MG/ML VIAL SQ PRN (06:13)
[2023-11-02] MEDS ORDERED: TRANEXAMIC 1,000 MG/100ML-NACL 1,000 MG in EMPTY BAG 1 BAG IV PRN (06:13)
[2023-11-02] MEDS: LACTATED RINGERS 1,000 ML IV SCH (06:24)
[2023-11-02] MEDS: AMPICILLIN 2,000 MG in SODIUM CHLORIDE 0.9% 100 ML IVPB STA (06:32)
[2023-11-02 06:38] LABS: Basophils % (A) 0 %; Eosinophils # (A) 0.2 k/uL (0-0.7); Eosinophils % (A) 2 %; HCT 35.2 % (34.0-46.0); HGB 11.7 gm/dL (11.4-16.0); Lymphocytes # (A) 2.8 k/uL (1.0-4.8); Lymphocytes % (A) 30 %; MCH 27.8 pg (25.0-35.0); MCHC 33.2 g/dL (31.0-37.0); MCV 83.8 fL (80.0-100.0); Mean Platelet Volume 7.4; Monocytes # (A) 0.4 k/uL (0-1.0); Monocytes % (A) 5 %; Neutrophils # (A) 5.7 k/uL (1.3-7.7); Neutrophils % (A) 62 %; Platelet Count 342 k/uL (150-450); RDW 13.3 % (11.5-15.5); WBC 9.3 k/uL (3.8-10.6)
[2023-11-02] MEDS: OXYTOCIN 30 UNITS/500 ML NS 30 UNIT in SALINE 1 500ML.BAG IV SCH (06:42)
[2023-11-02] MEDS: AMPICILLIN 1,000 MG in SODIUM CHLORIDE 0.9% 50 ML IVPB SCH (10:18)
[2023-11-02] MEDS ORDERED: IBUPROFEN 600 MG TAB PO PRN (11:25)
[2023-11-02] MEDS ORDERED: diphenhydrAMINE 50 MG/ML 1 ML VIAL IVP PRN (11:25)
[2023-11-02] MEDS ORDERED: OXYTOCIN 30 UNITS/500 ML NS 30 UNIT in SALINE 1 500ML.BAG IV SCH (11:25)
[2023-11-02] MEDS ORDERED: ZOLPIDEM 5 MG TAB PO PRN (11:25)
[2023-11-02] MEDS ORDERED: diphenhydrAMINE 25 MG CAP PO PRN (11:25)
[2023-11-02] MEDS ORDERED: ACETAMINOPHEN TAB 325 MG TAB PO PRN (11:25)
[2023-11-02] MEDS ORDERED: HYDROCORTISONE 2.5% RECTAL CREAM 30 GM TUBE RECTAL PRN (11:25)
[2023-11-02] MEDS ORDERED: SIMETHICONE 80 MG CHEWABLE PO PRN (11:25)
[2023-11-02] MEDS ORDERED: bisacodyL 10 MG SUPP RECTAL PRN (11:25)
[2023-11-02] MEDS ORDERED: LANOLIN CREAM 1 GM TUBE TOPICAL PRN (11:25)
[2023-11-02] MEDS ORDERED: BENZOCAINE/MENTHOL SPRAY 1 GM/SPRAY AEROSOL TOPICAL PRN (11:25)
--- NOTE | 2023-11-02 12:41 | P.PROBDLV ---
Vaginal Delivery Note - . Vaginal Delivery Note: Normal vaginal delivery viable male infant Apgars 9 and 9 delivery time was 1046 hrs. Please see dictated H&P for intimate details of this patient's admission. In brief summary this pleasant 23-year-old 2 para 1 female 39 and one sevenths weeks gestation who is admitted to labor and delivery for requested induction of labor. On admission patient is 4-5 cm dilated has artificial rupture membranes for clear fluid. Labor is induced with Pitocin per protocol. Patient is given a dose of antibiotics for positive group B strep culture. Labor progresses and she does not request anything for pain control. Patient gets to complete and with 2 pushes pushes the head to the perineum. Posterior perineum was supported. We then have controlled delivery of the infant's head over the intact perineum. Infant's head is straight occiput anterior presentation. Mouth and nares are bulb suctioned suctioned. There is no evidence of a nuchal cord. We did know that this baby was large for gestational age, for that reason the patient is placed in prophylactic Rogelio position and she with 1 push delivers the anterior and posterior shoulder and rest this 's body. This is a vigorous viable male Apgars are 9 and 9 delivery time was 1046 hrs. Infant has spontaneous respiration and good cry and grossly appears normal with the exception of some facial bruising. Infant is in laid on the mother's abdomen. After the umbilical cord is done pulsating is doubly clamped and cut and cord blood is obtained for Rh status. Placenta is then spontaneously delivered intact. Estimated blood loss is approximately 100 mL. Superficial left periurethral laceration does not require repair. There are no complications. and mother stable delivery room. All counts are correct 3.
[2023-11-02] MEDS: Rhogam IMMUNE GLOBULIN 1,500 UNIT/1 ML IM ONE (16:51)
[2023-11-02] MEDS: SENNOSIDES-DOCUSATE SODIUM 1 EACH TAB PO SCH (21:04)
[2023-11-03 06:18] LABS: Basophils # (A) 0.1 k/uL (0-0.2); Basophils % (A) 0 %; Eosinophils # (A) 0.2 k/uL (0-0.7); Eosinophils % (A) 1 %; HCT 33.9 % (34.0-46.0); HGB 11.5 gm/dL (11.4-16.0); Lymphocytes # (A) 2.7 k/uL (1.0-4.8); Lymphocytes % (A) 18 %; MCH 28.4 pg (25.0-35.0); MCHC 33.8 g/dL (31.0-37.0); MCV 84.1 fL (80.0-100.0); Mean Platelet Volume 7.6; Monocytes # (A) 0.6 k/uL (0-1.0); Monocytes % (A) 4 %; Neutrophils # (A) 11.5 k/uL (1.3-7.7); Neutrophils % (A) 75 %; Platelet Count 309 k/uL (150-450); RBC 4.03 m/uL (3.80-5.40); RDW 13.5 % (11.5-15.5); WBC 15.4 k/uL (3.8-10.6)
--- NOTE | 2023-11-03 06:50 | P.PNOBGVD ---
Subjective - Subjective Patient reports: Reports appetite normal, Reports voiding normally, Reports pain well controlled, Reports ambulating normally : doing well Objective - Latest Vital Signs Latest vital signs: Vital Signs Temp Pulse Resp BP Pulse Ox 11/03/23 00:00 77 15 115/77 11/02/23 23:00 98.1 F 78 15 133/84 98 11/02/23 19:54 98.3 F 71 16 137/85 11/02/23 15:27 97.9 F 94 16 135/65 11/02/23 12:59 72 16 11/02/23 12:45 62 16 115/85 11/02/23 12:28 69 16 133/68 11/02/23 12:02 62 16 130/93 11/02/23 11:45 83 16 133/85 11/02/23 11:30 70 16 123/68 11/02/23 11:15 75 16 126/71 11/02/23 11:00 97.2 F L 78 16 124/69 Intake and Output 11/02/23 11/02/23 11/03/23 14:59 22:59 06:59 Intake Total 480 Output Total 156 Balance -156 480 Intake: Oral 480 Output: Output, Quantitative 156 Blood Loss Other: Voiding Method Toilet # Voids 1 1 2 - Exam Lungs: bilateral: normal Chest: Normal S1, Normal S2 Extremities: Present: normal Abdomen: Present: normal appearance, soft Uterus: Present: normal, firm - Labs Labs: Abnormal Lab Results - Last 24 Hours (Table) 11/03/23 Range/Units 05:47 WBC 15.4 H (3.8-10.6) k/uL Hct 33.9 L (34.0-46.0) % Neutrophils # 11.5 H (1.3-7.7) k/uL Assessment and Plan Assessment: day #1. Patient is resting without complaints and wishes to go home. Vital signs are stable she's afebrile. Uterus is firm nontender and she is having normal lochia. Uterus is firm nontender and she is having normal lochia. CBC is pending at time of this dictation. My impression this is a normal course. Plan is to continue routine care discharge home later today. (1) Elective induction of labor planned Current Visit: No Status: Acute Code(s): ENQ9445 - SNOMED Code(s): 478836173 (2) Group B streptococcal carriage complicating Current Visit: No Status: Acute Code(s): O99.820 - STREPTOCOCCUS B CARRIER STATE COMPLICATING SNOMED Code(s): 176513494917768 (3) 39 weeks gestation of Current Visit: No Status: Acute Code(s): Z3A.39 - 39 WEEKS GESTATION OF SNOMED Code(s): 24738854 (4) Rh negative status during Current Visit: No Status: Acute Code(s): O26.899 - OTH RELATED CONDITIONS, UNSPECIFIED TRIMESTER; Z67.91 - UNSPECIFIED BLOOD TYPE, RH NEGATIVE SNOMED Code(s): 377126857
--- NOTE | 2023-11-03 06:55 | P.DS ---
Providers Date of admission: 11/02/23 06:00 Expected date of discharge: 11/03/23 Attending physician: Leonardo Andrew Primary care physician: Stated None - Discharge Diagnosis(es) (1) Elective induction of labor planned Current Visit: No Status: Acute (2) Group B streptococcal carriage complicating Current Visit: No Status: Acute (3) 39 weeks gestation of Current Visit: No Status: Acute (4) Rh negative status during Current Visit: No Status: Acute Hospital Course: Please see dictated H&P for intimate details of this patient's admission. In brief summary this is a pleasant 23-year-old 2 para 1 female 39 and one sevenths weeks gestation admitted to labor and delivery for induction of labor. Patient is admitted and quickly goes on have a vaginal delivery viable male infant. Please see dictated delivery note. day #1 patient's felt be stable for discharge home follow up with me next week. Procedures: Induction of labor and normal vaginal delivery Patient Condition at Discharge: Good Plan - Discharge Summary New Discharge Prescriptions: New Ibuprofen [Motrin] 600 mg PO Q6HR PRN #30 tab PRN Reason: Mild Pain (Scale 1 To 3) No Action Pnv No.95/Ferrous Fum/Folic AC [ Multivitamin Tablet] 1 tab PO DAILY Discharge Medication List Pnv No.95/Ferrous Fum/Folic AC [ Multivitamin Tablet] 1 tab PO DAILY 09/08/19 [History] Ibuprofen [Motrin] 600 mg PO Q6HR PRN #30 tab 11/03/23 [Rx] Follow up Appointment(s)/Referral(s): Leonardo Andrew MD [STAFF PHYSICIAN] - 2 Weeks Patient Instructions/Handouts: Vaginal Delivery (DC) Activity/Diet/Wound Care/Special Instructions: No intercourse or anything per vagina for 6 weeks. Please call if any fever, chills, excessive vaginal bleeding, and/or abdominal pain. Discharge Disposition: HOME SELF-CARE
--- NOTE | 2023-11-04 06:23 | P.PNOBGVD ---
Subjective - Subjective Patient reports: Reports appetite normal, Reports voiding normally, Reports pain well controlled, Reports ambulating normally : doing well Objective - Latest Vital Signs Latest vital signs: Vital Signs Temp Pulse Resp BP Pulse Ox 11/04/23 00:00 97.6 F 72 19 120/85 11/03/23 16:00 98.0 F 67 16 135/82 99 11/03/23 08:00 97.9 F 79 18 137/80 99 Intake and Output 11/03/23 11/03/23 11/04/23 14:59 22:59 07:59 Intake Total 960 Balance 960 Intake: Oral 960 Other: Voiding Method Toilet # Voids 1 1 3 - Exam Lungs: bilateral: normal Chest: Normal S1, Normal S2 Extremities: Present: normal Abdomen: Present: normal appearance, soft Uterus: Present: normal, firm - Labs Labs: Abnormal Lab Results - Last 24 Hours (Table) 11/03/23 Range/Units 05:47 WBC 15.4 H (3.8-10.6) k/uL Hct 33.9 L (34.0-46.0) % Neutrophils # 11.5 H (1.3-7.7) k/uL Assessment and Plan Assessment: day #2. Patient's resting without new complaints. Vital signs are stable she's afebrile. Patient's baby was having some respiratory issues yesterday is placed on IV antibiotics therefore she decided to stay. Her and the baby are continues to do well. Plan today is to check a CBC, continue routine care, and discharge home later. (1) Elective induction of labor planned Current Visit: No Status: Acute Code(s): [id number] - SNOMED Code(s): 63816 3005 (2) Group B streptococcal carriage complicating Current Visit: No Status: Acute Code(s): O99.820 - STREPTOCOCCUS B CARRIER STATE COMPLICATING SNOMED Code(s): 651452743866785 (3) 39 weeks gestation of Current Visit: No Status: Acute Code(s): Z3A.39 - 39 WEEKS GESTATION OF SNOMED Code(s): 80850210 (4) Rh negative status during Current Visit: No Status: Acute Code(s): O26.899 - OTH RELATED CONDITIONS, UNSPECIFIED TRIMESTER; Z67.91 - UNSPECIFIED BLOOD TYPE, RH NEGATIVE SNOMED Code(s): 517273464
[2023-11-04 07:56] LABS: Basophils # (A) 0.1 k/uL (0-0.2); Basophils % (A) 1 %; Eosinophils # (A) 0.4 k/uL (0-0.7); Eosinophils % (A) 5 %; HCT 34.9 % (34.0-46.0); HGB 11.7 gm/dL (11.4-16.0); Lymphocytes # (A) 2.5 k/uL (1.0-4.8); Lymphocytes % (A) 26 %; MCH 28.6 pg (25.0-35.0); MCHC 33.6 g/dL (31.0-37.0); MCV 84.9 fL (80.0-100.0); Mean Platelet Volume 6.8; Monocytes # (A) 0.4 k/uL (0-1.0); Monocytes % (A) 4 %; Neutrophils # (A) 5.9 k/uL (1.3-7.7); Neutrophils % (A) 62 %; Platelet Count 315 k/uL (150-450); RDW 13.5 % (11.5-15.5); WBC 9.5 k/uL (3.8-10.6)
[2023-11-04 07:59] VITALS: BP 139/81; PULSE 66; RESP 16; TEMP 97.5
== END 2023-11-04 12:59 | disposition home or self-care (01) | DRG 560 ==
LOC: 4FBP 06:00
PROVIDERS: ADMIT Obstetrics & Gynecology; ATTEND Obstetrics & Gynecology
PROC: 10E0XZZ Delivery of Products of Conception, External Approach (ICD-10-PCS; principal; 2023-11-02)
PROC: 10907ZC Drainage of Amniotic Fluid, Therapeutic from Products of Conception, Via Natural or Artificial Opening (ICD-10-PCS; 2023-11-02)
PROC: 3E033VJ Introduction of Other Hormone into Peripheral Vein, Percutaneous Approach (ICD-10-PCS; 2023-11-02)
DX: O36.63X0 Maternal care for excessive fetal growth, third trimester, not applicable or unspecified (principal); O26.893 Other specified pregnancy related conditions, third trimester; O71.82 Other specified trauma to perineum and vulva; O99.824 Streptococcus B carrier state complicating childbirth; Z37.0 Single live birth; Z67.91 Unspecified blood type, Rh negative; Z3A.39 39 weeks gestation of pregnancy; Z28.310 Unvaccinated for COVID-19; Z28.21 Immunization not carried out because of patient refusal
CPT/HCPCS: 85025; 85461; 86850; 86900; 86901; 88307